=== PATIENT | male | born 2000 | race Caucasian/White ===

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

== ENCOUNTER → 2022-05-06 | Outpatient (REF) | payer OTHER | LOC: M LAB REF 16:19 | PROVIDERS: ATTEND Physician Assistant Medical | DX: R50.9 Fever, unspecified (principal) ==

== ENCOUNTER → 2022-07-29 | Outpatient (REF) | payer OTHER | LOC: M LAB REF 16:52 | PROVIDERS: ATTEND Physician Assistant | DX: B34.9 Viral infection, unspecified (principal) ==

== ENCOUNTER 2024-01-28 06:28 | Emergency (ER) | payer BC, OTHER ==
[~2024-01-28] VITALS: Ht 185.4 cm; Wt 100.0 kg
[2024-01-28] MEDS: KETOROLAC 60MG 2ML VIAL IM ONE (09:33)
[2024-01-28] MEDS ORDERED: HOME MED LIST COMPLETE! XX SCH (09:45)
[2024-01-28] MEDS: ONDANSETRON 4MG ORAL DISINTEGRATING TAB PO ONE (10:16)
[2024-01-28] MEDS ORDERED: ACET500P3 PO (10:38)
[2024-01-28 11:05] VITALS: BP 133/71; TEMP 98.3; O2SAT 96
== END 2024-01-28 11:10 | disposition home or self-care (01) ==
LOC: M ED 06:28
DX: S00.81XA Abrasion of other part of head, initial encounter (principal); S06.0X0A Concussion without loss of consciousness, initial encounter; S83.92XA Sprain of unspecified site of left knee, initial encounter; S03.2XXA Dislocation of tooth, initial encounter; Y04.0XXA Assault by unarmed brawl or fight, initial encounter; Y92.481 Parking lot as the place of occurrence of the external cause; Y93.9 Activity, unspecified; Y99.9 Unspecified external cause status; Z88.0 Allergy status to penicillin; Z88.1 Allergy status to other antibiotic agents; Z79.1 Long term (current) use of non-steroidal anti-inflammatories (NSAID)
CPT/HCPCS: 70450; 70486; 72125; 73552; 73564; 96372; 99284; J1885

== ENCOUNTER 2024-09-08 18:37 | Emergency (ER) | payer BC, OTHER ==
[~2024-09-08] VITALS: Ht 185.4 cm; Wt 92.0 kg
[~2024-09-08 18:37] MED LIST changes: +ACET500P3 PO
[2024-09-08] MEDS ORDERED: METH-1164 (18:50)
[2024-09-08] MEDS: KETOROLAC 30 MG/ML 1 ML VIAL IV ONE (20:09)
[2024-09-08] MEDS: ONDANSETRON 4MG 2ML VIAL IV ONE (22:54)
[2024-09-08] MEDS: MORPHINE 4 MG/ML 1 ML VIAL IV ONE (22:54)
[2024-09-09 00:43] VITALS: BP 131/77; TEMP 97.4; O2SAT 98
== END 2024-09-09 00:43 | disposition home or self-care (01) ==
LOC: M ED 18:37
DX: S16.1XXA Strain of muscle, fascia and tendon at neck level, initial encounter (principal); W50.0XXA Accidental hit or strike by another person, initial encounter; Y92.34 Swimming pool (public) as the place of occurrence of the external cause; Y93.11 Activity, swimming; Y99.9 Unspecified external cause status; Z88.0 Allergy status to penicillin; Z88.1 Allergy status to other antibiotic agents
CPT/HCPCS: 72141; 72146; 96374; 96375; 99284; J1885; J2405